=== PATIENT | female | born 2000 ===

== ENCOUNTER → 2022-11-22 16:12 | Outpatient (CLI) | payer OTHER, SELFPAY ==
--- NOTE | ~2022-11-22 | US_ITS ---
EXAMINATION: US thyroid DATE: 11/22/2022 16:26 INDICATION: Thyromegaly TECHNIQUE: Multiple ultrasound images of the thyroid were obtained. COMPARISON: None. FINDINGS: The right thyroid lobe measures 5.4 x 1.5 x 1.5 cm. The left thyroid lobe measures 4.1 x 2 0.1, 0.9 cm. 7 mm wider than tall hypoechoic nodule with ill-defined margins and without echogenic foci at the inferior left thyroid (TI-RADS 4, moderately suspicious , FNA if >=1.5 cm, annual followup is >=1 cm ). There is normal echotexture, echogenicity and vascular flow throughout the thyroid gland. IMPRESSION: 1. 7 mm TI-RADS 4 left thyroid nodule which remains below recommended threshold for either biopsy or follow-up. Reviewed, dictated and finalized at location A.
== END ==
DX: E04.1 Nontoxic single thyroid nodule (principal)
CPT/HCPCS: 76536